=== PATIENT | male | born 1980 | race Two or more races ===

== ENCOUNTER 2023-03-15 17:18 | Inpatient (IN) | payer MEDICAID ==
[~2023-03-15] VITALS: Ht 177.8 cm; Wt 162.9 kg
[2023-03-15 21:56] LABS: Basophils # (auto) 0 10 ^3/uL (0-0.2); Basophils % (auto) 0.8 % (0.0-2.0); Eosinophils # (auto) 0.1 10 ^3/uL (0-0.8); Eosinophils % (auto) 2.5 % (0.0-7.0); Hematocrit 44.1 % (41.0-53.0); Hemoglobin 15.4 g/dL (13.5-17.5); Lymphocytes # (auto) 1.6 10 ^3/uL (0.4-5.4); Lymphocytes % (auto) 26.8 % (10.0-50.0); Mean Corpuscular Hemoglobin 30.9 pg (28.0-32.0); Mean Corpuscular Hgb Conc. 34.8 g/dL (32.0-36.0); Mean Corpuscular Volume 88.8 fL (80.0-100.0); Monocytes # (auto) 0.4 10 ^3/uL (0-1.3); Monocytes % (auto) 7.1 % (0.0-12.0); Neutrophils # (auto) 3.7 10 ^3/uL (1.6-8.6); Neutrophils % (auto) 62.8 % (37.0-80.0); Nucleated Red Blood Cells % 0.1 %; Red Blood Cells 4.97 10^6/uL (4.5-5.90); White Blood Cell 5.9 10^3/uL (4.4-10.8)
[2023-03-15 22:21] LABS: Alanine Aminotransferase 105 U/L (7-40); Albumin 4.1 g/dL (3.2-4.8); Alkaline Phosphatase 143 U/L (46-116); Anion Gap 9 (5-15); Aspartate Aminotransferase 178 U/L (13-40); BUN/Creatinine Ratio 10.9 (10.0-20.0); Bilirubin, Total 1.1 mg/dL (0.2-1.0); Blood Urea Nitrogen 10 mg/dL (9-23); Calcium 9.6 mg/dL (8.5-10.1); Carbon Dioxide 27 mmol/L (20-30); Chloride 95 mmol/L (98-107); Glucose 317 mg/dL (74-106); Potassium 3.7 mmol/L (3.5-5.1); Sodium 131 mmol/L (136-145); Total Protein 7.5 g/dL (5.7-8.2)
[2023-03-16] MEDS ORDERED: DEXTROSE (50%) 50ML SYRG IV PRN (00:30)
[2023-03-16] MEDS ORDERED: ONDANSETRON HCL 4 MG/2 ML VIAL IV PRN (00:30)
[2023-03-16] MEDS ORDERED: ACETAMINOPHEN 325 MG TAB PO PRN (00:30)
[2023-03-16] MEDS: cefTRIAXone 1GM/50ML D5W 50 ML IV ONE (00:53)
[2023-03-16] MEDS: SODIUM CHLORIDE 0.9% 1,000 ML IV ONE (03:01)
[2023-03-16] MEDS: CLINDAMYCIN 600MG IV 50 ML IV ONE (03:22)
[2023-03-16 04:30] VITALS: PULSE 91; RESP 12; O2SAT 95
[2023-03-16 05:23] LABS: Urine Bacteria NONE SEEN /hpf (None Seen); Urine Blood Negative /uL (Negative); Urine Clarity Clear (Clear); Urine Color Yellow (Yellow); Urine Mucus FEW (None Seen); Urine Protein, UAD 1+ (Negative); Urine Specific Gravity 1.043 (1.001-1.035); Urine WBC 22 /hpf (0 - 3)
[2023-03-16] MEDS: ACCU-CHEK COMFORT CURVE STRIP VI SCH ×2 (06:09→16:16)
[2023-03-16] MEDS: InsuLIN REG 1unit/0.01ml Soln (100units/ml) SC SCH ×2 (06:18→16:14)
[2023-03-16 07:50] VITALS: PULSE 83; RESP 13; O2SAT 96
[2023-03-16] MEDS ORDERED: CLINDAMYCIN 600MG IV 50 ML IV SCH (08:00)
[2023-03-16] MEDS: CLINDAMYCIN 600MG IV 50 ML IV SCH (10:09)
[2023-03-16 14:18] VITALS: BP 123/81; PULSE 88; RESP 14; TEMP 97.5; O2SAT 94
[2023-03-16] MEDS: INSULIN LANTUS (GLARGINE) 1 /0.01ml (100units/ml) SC ONE (16:15)
[2023-03-16 17:05] VITALS: BP 115/79; PULSE 85; RESP 17; TEMP 98.5; O2SAT 96
[2023-03-16] MEDS ORDERED: INSUINJ37 SC (17:30)
[2023-03-16] MEDS ORDERED: METF-370 PO (17:30)
[2023-03-16] MEDS ORDERED: ATOR20TA50 PO (17:30)
[2023-03-16] MEDS ORDERED: CHOL1CAP21 PO (17:30)
[2023-03-16] MEDS ORDERED: CLIN-203 PO (17:30)
[2023-03-16] MEDS: metFORMIN HYDROCHLORIDE 500 MG TAB PO SCH (17:44)
[2023-03-16 20:00] VITALS: RESP 18; O2SAT 97
[2023-03-16] MEDS: cefTRIAXone 1GM/50ML D5W 50 ML IV SCH (20:45)
[2023-03-16 21:53] VITALS: BP 127/82; PULSE 90; RESP 18; TEMP 97.8; O2SAT 97
[2023-03-17] VITALS (7 sets, daily range): BP systolic 122–148; BP diastolic 64–84; PULSE 84–102; RESP 18–20; TEMP 97.6–98.3; O2SAT 92–99
[2023-03-17 05:25] LABS: Basophils # (auto) 0 10 ^3/uL (0-0.2); Eosinophils # (auto) 0.2 10 ^3/uL (0-0.8); Eosinophils % (auto) 3.8 % (0.0-7.0); Hematocrit 42.4 % (41.0-53.0); Hemoglobin 14.8 g/dL (13.5-17.5); Lymphocytes # (auto) 1.6 10 ^3/uL (0.4-5.4); Lymphocytes % (auto) 31.5 % (10.0-50.0); Mean Corpuscular Hemoglobin 31.4 pg (28.0-32.0); Mean Corpuscular Volume 89.7 fL (80.0-100.0); Monocytes # (auto) 0.4 10 ^3/uL (0-1.3); Monocytes % (auto) 8.7 % (0.0-12.0); Neutrophils # (auto) 2.8 10 ^3/uL (1.6-8.6); Red Blood Cells 4.73 10^6/uL (4.5-5.90); Red Cell Distribution Width 14.9 % (11.8-14.3)
[2023-03-17 05:40] LABS: Alanine Aminotransferase 135 U/L (7-40); Albumin 3.9 g/dL (3.2-4.8); Alkaline Phosphatase 123 U/L (46-116); Anion Gap 7 (5-15); Aspartate Aminotransferase 215 U/L (13-40); BUN/Creatinine Ratio 7.7 (10.0-20.0); Blood Urea Nitrogen 6 mg/dL (9-23); Calcium 8.7 mg/dL (8.5-10.1); Carbon Dioxide 27 mmol/L (20-30); Chloride 100 mmol/L (98-107); Cholesterol 185 mg/dL (< 200); Glucose 275 mg/dL (74-106); HDL Cholesterol 29 mg/dL (40-59); LDL Cholesterol 121 mg/dL (< 100); Sodium 134 mmol/L (136-145); Triglycerides 269 mg/dL (< 150)
[2023-03-17 05:41] LABS: Bilirubin, Total 1.1 mg/dL (0.2-1.0); Total Protein 6.9 g/dL (5.7-8.2)
[2023-03-17] MEDS: INSULIN LANTUS (GLARGINE) 1 /0.01ml (100units/ml) SC SCH ×2 (06:34→21:46)
[2023-03-17] MEDS: POTASSIUM CHL 20 Meq TABLET PO ONE ×2 (07:49→08:30)
[2023-03-17] MEDS: LISINOPRIL 10 MG TAB PO SCH (08:31)
[2023-03-17] MEDS: INSULIN LANTUS (GLARGINE) 1 /0.01ml (100units/ml) SC ONE (10:00)
[2023-03-18] VITALS (7 sets, daily range): BP systolic 110–141; BP diastolic 56–82; PULSE 69–110; RESP 16–20; TEMP 97.4–98.4; O2SAT 92–99
[2023-03-18] MEDS: HYDROcodone-ACET 5/325MG TAB PO PRN (10:39)
[2023-03-19 04:53] VITALS: BP 114/76; PULSE 89; RESP 17; TEMP 97.6; O2SAT 94
[2023-03-19 05:25] LABS: Basophils # (auto) 0.1 10 ^3/uL (0-0.2); Basophils % (auto) 1.6 % (0.0-2.0); Eosinophils # (auto) 0.3 10 ^3/uL (0-0.8); Eosinophils % (auto) 4.6 % (0.0-7.0); Hematocrit 43.6 % (41.0-53.0); Hemoglobin 15.2 g/dL (13.5-17.5); Lymphocytes # (auto) 1.4 10 ^3/uL (0.4-5.4); Lymphocytes % (auto) 24.5 % (10.0-50.0); Mean Corpuscular Hemoglobin 30.9 pg (28.0-32.0); Mean Corpuscular Volume 88.4 fL (80.0-100.0); Monocytes # (auto) 0.6 10 ^3/uL (0-1.3); Monocytes % (auto) 10.3 % (0.0-12.0); Neutrophils # (auto) 3.4 10 ^3/uL (1.6-8.6); Nucleated Red Blood Cells % 0.2 %; Red Blood Cells 4.93 10^6/uL (4.5-5.90); White Blood Cell 5.8 10^3/uL (4.4-10.8)
[2023-03-19 05:35] LABS: Albumin 3.9 g/dL (3.2-4.8); Alkaline Phosphatase 114 U/L (46-116); Anion Gap 7 (5-15); Aspartate Aminotransferase 211 U/L (13-40); BUN/Creatinine Ratio 10.3 (10.0-20.0); Bilirubin, Total 1.5 mg/dL (0.2-1.0); Blood Urea Nitrogen 8 mg/dL (9-23); Calcium 8.5 mg/dL (8.7-10.4); Carbon Dioxide 29 mmol/L (20-30); Chloride 97 mmol/L (98-107); Glucose 181 mg/dL (74-106); Potassium 2.7 mmol/L (3.5-5.1); Sodium 133 mmol/L (136-145)
[2023-03-19 05:42] LABS: Alanine Aminotransferase 161 U/L (7-40)
[2023-03-19 06:17] LABS: Erythrocyte Sedimentation Rate 32 mm/hr (0-20)
[2023-03-19 09:00] VITALS: BP 115/71; PULSE 94; RESP 20; TEMP 97.8; O2SAT 95
[2023-03-19] MEDS: POTASSIUM CHL 20MEQ/100ML 100 ML IV ONE (10:07)
[2023-03-19] MEDS: POTASSIUM EFFERVESENT TAB 25 MEQ PO ONE (10:09)
[2023-03-19] MEDS: NYSTATIN TOPICAL POWDER 15GM TOP SCH (10:51)
[2023-03-19 11:39] LABS: INR 1.15 (0.9-1.15)
[2023-03-19 13:00] VITALS: BP 116/74; PULSE 90; RESP 20; TEMP 97.8; O2SAT 96
[2023-03-19] MEDS ORDERED: IOHEXOL 300 MG/ML 100ML BOTTLE IJ ONE (14:06)
[2023-03-19] MEDS ORDERED: OMNIPAQUE 12mg/ml 500ml ORAL SOLUTION PO ONE (14:06)
[2023-03-19 17:00] VITALS: BP 124/79; PULSE 96; RESP 20; TEMP 97.8; O2SAT 96
[2023-03-19 20:00] VITALS: PULSE 90; RESP 20; O2SAT 95
[2023-03-19 22:00] VITALS: BP 125/87; PULSE 106; RESP 18; TEMP 98.4; O2SAT 95
[2023-03-20 05:00] VITALS: BP 114/72; PULSE 96; RESP 17; TEMP 98.4; O2SAT 93
[2023-03-20 05:56] LABS: Basophils # (auto) 0 10 ^3/uL (0-0.2); Basophils % (auto) 0.8 % (0.0-2.0); Eosinophils # (auto) 0.2 10 ^3/uL (0-0.8); Eosinophils % (auto) 3.3 % (0.0-7.0); Hematocrit 43.9 % (41.0-53.0); Hemoglobin 15.2 g/dL (13.5-17.5); Lymphocytes # (auto) 1.6 10 ^3/uL (0.4-5.4); Lymphocytes % (auto) 26.1 % (10.0-50.0); Mean Corpuscular Hemoglobin 31.1 pg (28.0-32.0); Mean Corpuscular Hgb Conc. 34.6 g/dL (32.0-36.0); Mean Corpuscular Volume 89.8 fL (80.0-100.0); Monocytes # (auto) 0.7 10 ^3/uL (0-1.3); Monocytes % (auto) 11.4 % (0.0-12.0); Neutrophils # (auto) 3.5 10 ^3/uL (1.6-8.6); Neutrophils % (auto) 58.4 % (37.0-80.0); Nucleated Red Blood Cells % 0.1 %; Red Blood Cells 4.89 10^6/uL (4.5-5.90); Red Cell Distribution Width 15.2 % (11.8-14.3)
[2023-03-20 06:11] LABS: Alanine Aminotransferase 160 U/L (7-40); Alkaline Phosphatase 109 U/L (46-116); Anion Gap 9 (5-15); Blood Urea Nitrogen 8 mg/dL (9-23); Calcium 8.8 mg/dL (8.7-10.4); Carbon Dioxide 28 mmol/L (20-30); Chloride 97 mmol/L (98-107); Glucose 170 mg/dL (74-106); Potassium 2.8 mmol/L (3.5-5.1); Sodium 134 mmol/L (136-145)
[2023-03-20 06:12] LABS: Albumin 3.9 g/dL (3.2-4.8); Aspartate Aminotransferase 203 U/L (13-40); Bilirubin, Total 1.4 mg/dL (0.2-1.0)
[2023-03-20 08:00] VITALS: PULSE 89; PULSE 90; RESP 18; O2SAT 92
[2023-03-20 08:38] VITALS: BP 132/73; PULSE 89; RESP 18; TEMP 97.7; O2SAT 92
[2023-03-20 09:22] LABS: Hepatitis B Surface Antigen Negative (Negative)
[2023-03-20] MEDS: POTASSIUM CHL 20 Meq TABLET PO ONE (09:30)
[2023-03-20 09:44] LABS: Hepatitis B Core IgM Negative; Hepatitis C Antibody Negative (Negative)
[2023-03-20 09:51] LABS: Hepatitis A Ab IgM Negative
[2023-03-20 12:57] VITALS: BP 132/81; PULSE 96; RESP 18; TEMP 98.3; O2SAT 92
[2023-03-20 17:00] VITALS: BP 123/78; PULSE 101; RESP 18; TEMP 98.1; O2SAT 98
[2023-03-20 22:00] VITALS: BP 127/62; PULSE 98; RESP 19; TEMP 98.5; O2SAT 94
[2023-03-21 05:00] VITALS: BP 134/78; PULSE 88; RESP 19; TEMP 98.1; O2SAT 95
[2023-03-21 07:23] LABS: Alanine Aminotransferase 160 U/L (7-40); Alkaline Phosphatase 107 U/L (46-116); Anion Gap 7 (5-15); Aspartate Aminotransferase 197 U/L (13-40); BUN/Creatinine Ratio 11.1 (10.0-20.0); Blood Urea Nitrogen 8 mg/dL (9-23); Calcium 8.9 mg/dL (8.5-10.1); Carbon Dioxide 30 mmol/L (20-30); Chloride 98 mmol/L (98-107); Glucose 143 mg/dL (74-106); Potassium 2.9 mmol/L (3.5-5.1); Sodium 135 mmol/L (136-145)
[2023-03-21 07:24] LABS: Bilirubin, Total 1.4 mg/dL (0.2-1.0); Total Protein 6.7 g/dL (5.7-8.2)
[2023-03-21 08:00] VITALS: PULSE 104; PULSE 89; RESP 16; O2SAT 93
[2023-03-21 09:16] VITALS: BP 132/75; PULSE 104; RESP 16; TEMP 98.1; O2SAT 93
[2023-03-21] MEDS: POTASSIUM CHL 20 Meq TABLET PO ONE ×2 (10:09→17:44)
[2023-03-21 12:38] VITALS: BP 123/74; PULSE 95; RESP 16; TEMP 97.9; O2SAT 96
[2023-03-21 16:32] VITALS: BP 130/80; PULSE 97; RESP 17; TEMP 98.1; O2SAT 99
[2023-03-21 22:00] VITALS: BP 121/74; PULSE 91; RESP 18; TEMP 97.6; O2SAT 98
[2023-03-22 05:00] VITALS: BP 132/78; PULSE 93; RESP 16; TEMP 97.5; O2SAT 96
[2023-03-22 07:03] LABS: Alanine Aminotransferase 149 U/L (7-40); Albumin 4.2 g/dL (3.2-4.8); Alkaline Phosphatase 115 U/L (46-116); Anion Gap 7 (5-15); Aspartate Aminotransferase 167 U/L (13-40); BUN/Creatinine Ratio 10.7 (10.0-20.0); Blood Urea Nitrogen 8 mg/dL (9-23); Calcium 9.1 mg/dL (8.7-10.4); Carbon Dioxide 28 mmol/L (20-30); Chloride 99 mmol/L (98-107); Glucose 141 mg/dL (74-106); Magnesium 1.8 mg/dL (1.6-2.6); Potassium 3.5 mmol/L (3.5-5.1); Sodium 134 mmol/L (136-145)
[2023-03-22 07:04] LABS: Bilirubin, Total 1.7 mg/dL (0.2-1.0); Total Protein 7.4 g/dL (5.7-8.2)
[2023-03-22 07:11] LABS: % Iron Saturation 23.2 % (20-55)
[2023-03-22 07:19] LABS: Creatinine, Urine 159.85 mg/dL (30.0-125.0)
[2023-03-22 08:54] VITALS: BP 137/80; PULSE 100; RESP 16; TEMP 98.6; O2SAT 93
[2023-03-22] MEDS ORDERED: LISI10TA34 PO (10:41)
[2023-03-22 12:10] VITALS: BP 137/80
[2023-03-22 12:32] VITALS: BP 121/68; PULSE 88; RESP 20; TEMP 97.9; O2SAT 95
[2023-03-27 20:06] LABS: Renin Activity 25 ng/mL/hr (.)
== END 2023-03-22 13:10 | disposition home health service (06) | DRG 383 ==
LOC: ER 17:18 → OVERFLOW 03-16 00:21 → CENTRAL 03-16 14:08
PROVIDERS: ADMIT Nurse Practitioner; ATTEND Internal Medicine Geriatric Medicine
DX: L03.314 Cellulitis of groin (principal); E11.628 Type 2 diabetes mellitus with other skin complications; K76.0 Fatty (change of) liver, not elsewhere classified; E83.51 Hypocalcemia; E87.1 Hypo-osmolality and hyponatremia; Z68.43 Body mass index [BMI] 50.0-59.9, adult; E11.65 Type 2 diabetes mellitus with hyperglycemia; L02.214 Cutaneous abscess of groin; K80.20 Calculus of gallbladder without cholecystitis without obstruction; N49.2 Inflammatory disorders of scrotum; E78.5 Hyperlipidemia, unspecified; E66.01 Morbid (severe) obesity due to excess calories; I10 Essential (primary) hypertension; E87.6 Hypokalemia; G47.33 Obstructive sleep apnea (adult) (pediatric); T46.6X5A Adverse effect of antihyperlipidemic and antiarteriosclerotic drugs, initial encounter; L30.4 Erythema intertrigo; Z79.4 Long term (current) use of insulin; Z93.3 Colostomy status; Z79.84 Long term (current) use of oral hypoglycemic drugs; Z79.899 Other long term (current) drug therapy; Z85.038 Personal history of other malignant neoplasm of large intestine; Z85.048 Personal history of other malignant neoplasm of rectum, rectosigmoid junction, and anus
CPT/HCPCS: 36415; 74177; 76705; 78226; 80053; 80061; 80074; 81001; 82088; 82378; 82570; 82728; 82962; 83540; 83550; 83605; 83735; 84133; 84244; 84443; 85025; 85610; 85652; 85730; 86038; 87040; 87081; 87205; G0378; J1642; J1815; J3480; J3490